=== PATIENT | male | born 1950 | race Caucasian/White ===

== ENCOUNTER 2016-09-09 15:43 | Inpatient (IN) | payer OTHER ==
--- NOTE | 2016-09-09 15:53 | EDPHY ---
H & P Time Seen by Provider: 09/09/16 15:44 HPI/ROS: CHIEF COMPLAINT: Abdominal pain vomiting HISTORY OF PRESENT ILLNESS: Patient had hot dog last Tuesday and started having vomiting and diarrhea after that. Since Tuesday he has had abdominal pain which is bilateral across his lower abdomen and worse with trying to eat or drink anything. He vomited 3 times today and no bowel movement since Tuesday and no good oral intake of food since Tuesday. Was seen on the and had a creatinine 3.2 decreasing to 1.4 on the . Abdominal pain is moderate to severe. Does not radiate except located on both lower quadrants. Not associated with urinary symptoms. Not better or worse with position. Worse with walking and eating. REVIEW OF SYSTEMS: Eye: no change in vision ENT: no sore throat Cardiac: no chest pain or syncope Pulmonary: no cough or SOB Abdomen: HPI Musculoskeletal: no back pain Skin: no rash Neuro: no headache Constitutional: no fever : no urinary symptoms A comprehensive 10 point review of systems is otherwise negative aside from elements mentioned in the history of present illness. PAST MEDICAL HISTORY: Knee scope, cataract surgery Social history: No tobacco General Appearance: Alert and conversant, cooperative. Eyes: No scleral icterus. ENT, Mouth: Dry mucous membranes Respiratory: Normal respiratory effort, breath sounds equal, lungs are clear to auscultation. Cardiovascular: Regular rate and rhythm. Gastrointestinal: Mildly distended but bowel sounds present bilateral lower quadrant tenderness without rebound or guarding. Neurological: Alert and oriented x3. Normally conversant. Face symmetric, normal movement and sensation in all extremities. Ambulatory. Skin: Warm and dry, no rashes. Musculoskeletal: No peripheral edema and no joint swelling. Psychiatric: Not agitated. Emergency Department course/MDM: Dilaudid 0.5 mg IV and Zofran 4 mg IV. Normal saline 2 L IV for nausea and vomiting. CT scanning discussed and consented. 1620: I-STAT creatinine 1.5, CT with IV contrast. 1715: Results discussed with patient and surgeon, IV Invanz 1 g, plan for admission. Smoking Status: Never smoked Constitutional: Initial Vital Signs Temperature (C) 36.7 C 09/09/16 15:48 Heart Rate 96 09/09/16 15:48 Respiratory Rate 16 09/09/16 15:48 Blood Pressure 122/90 H 09/09/16 15:48 O2 Sat (%) 94 09/09/16 15:48 O2 Delivery Mode Room Air Allergies/Adverse Reactions: acetaminophen [From Tylenol] Allergy (Verified 09/09/16 15:48) Home Medications: Medication Instructions Recorded Multivitamins [Multivitamin (*)] 1 each PO DAILY 09/09/16 Naproxen Sodium [Aleve 220 MG (*)] 220 mg PO TUTHFR 09/09/16 Medical Decision Making - Diagnostics EKG Interpretation: 12-lead EKG interpreted by me; official reading is in trace master. My interpretation is sinus rhythm rate 93 no ischemic changes. Imaging Results: Imaging Impressions Abdomen CT 09/09/16 16:25 Impression: 1. High-grade distal small bowel obstruction, with superimposed acute appendicitis and appendicoliths or lobulated partially calcified mass in the cecum or base of the appendix, and, therefore, superimposed neoplasm in this region cannot be excluded. 2. Small loculated fluid collection possibly within the posterior right side of the pelvis may represent early abscess. Findings and recommendations discussed with Emergency Department physician, Alvaro Dawson M.D., at 1720 hours, on September 09, 2016. Final report concurs with initial preliminary interpretation. CT abdomen and pelvis viewed independently and interpreted by myself at 5:13 p.m. shows small bowel obstruction. Discussed with Maninderi at 5:20 p.m. shows also possible appendicitis. Imaging: I viewed and interpreted images myself Differential Diagnosis: Differential diagnosis considered for abdominal pain including but not limited to appendicitis, cholecystitis, pancreatitis, bowel obstruction, diverticulitis. Consult/Admit Bed Type: [place] [id number] - Data Points Laboratory Results: Laboratory Results 09/09/16 16:10 09/09/16 16:10 09/09/16 09/09/16 09/09/16 16:11 16:10 16:10 WBC RBC Hgb POC Hgb 17.0 gm/dL gm/dL (14.5-17.3) Hct POC Hct 50 % % (42.8-50.6) MCV MCH MCHC RDW Plt Count MPV Neut % (Auto) Lymph % (Auto) [place] % (Auto) Eos % (Auto) Baso % (Auto) Nucleat RBC Rel Count Absolute Neuts (auto) Absolute Lymphs (auto) Absolute Monos (auto) Absolute Eos (auto) Absolute Basos (auto) Absolute Nucleated RBC Immature Gran % Seg Neutrophils % Band Neutrophils % Lymphocytes % Monocytes % Eosinophils % Metamyelocytes % Immature Gran # Absolute Seg Neuts Absolute Band Neuts Absolute Lymphocytes Absolute Monocytes Absolute Eosinophils Absolute Metamyelocyte RBC/WBC/PLT Morphology Platelet Estimate Smear Review By [facility] Lactic Acid 1.2 mmol/L mmol/L (0.7-2.1) POC Sodium 130 mEq/L L mEq/L (134-144) Sodium 128 mEq/L L mEq/L (134-144) POC Potassium 4.1 mEq/L mEq/L (3.3-5.0) Potassium 4.5 mEq/L mEq/L (3.5-5.2) POC Chloride 91 mEq/L L mEq/L (96-108) Chloride 89 mEq/L L mEq/L (97-110) Carbon Dioxide 26 mEq/l mEq/l (22-31) Anion Gap 13 mEq/L mEq/L (8-16) POC BUN 41 mg/dL H mg/dL (7-23) BUN 42 mg/dL H mg/dL (7-23) Creatinine 1.4 mg/dL H mg/dL (0.7-1.3) POC Creatinine 1.5 mg/dL mg/dL (0.8-1.5) Estimated GFR 51 Glucose 130 mg/dL H mg/dL (70-100) POC Glucose 132 mg/dL H mg/dL (70-100) Calcium 9.0 mg/dL mg/dL (8.5-10.4) Total Bilirubin 1.0 mg/dL mg/dL (0.1-1.4) Conjugated Bilirubin 0.6 mg/dL H mg/dL (0.0-0.5) Unconjugated Bilirubin 0.4 mg/dL mg/dL (0.0-1.1) AST 61 IU/L H IU/L (17-59) ALT 72 IU/L IU/L (21-72) Alkaline Phosphatase 141 IU/L H IU/L (38-126) Total Protein 6.9 g/dL g/dL (6.3-8.2) Albumin 3.8 g/dL g/dL (3.5-5.0) Lipase 72.0 IU/L IU/L (23-300) 09/09/16 16:10 WBC 4.48 10^3/uL D 10^3/uL (3.80-9.50) RBC 5.38 10^6/uL 10^6/uL (4.40-6.38) Hgb 16.3 g/dL g/dL (13.7-17.5) POC Hgb Hct 46.6 % % (40.0-51.0) POC Hct MCV 86.6 fL fL (81.5-99.8) MCH 30.3 pg pg (27.9-34.1) MCHC 35.0 g/dL g/dL (32.4-36.7) RDW 13.3 % % (11.5-15.2) Plt Count 331 10^3/uL D 10^3/uL (150-400) MPV 10.2 fL fL (8.7-11.7) Neut % (Auto) Not Reported Lymph % (Auto) Not Reported [place] % (Auto) Not Reported Eos % (Auto) Not Reported Baso % (Auto) Not Reported Nucleat RBC Rel Count 0.0 % % (0.0-0.2) Absolute Neuts (auto) Not Reported Absolute Lymphs (auto) Not Reported Absolute Monos (auto) Not Reported Absolute Eos (auto) Not Reported Absolute Basos (auto) Not Reported Absolute Nucleated RBC 0.00 10^3/uL 10^3/uL (0-0.01) Immature Gran % Not Reported Seg Neutrophils % 30 % % Band Neutrophils % 24 % % Lymphocytes % 15 % % Monocytes % 28 % % Eosinophils % 2 % % Metamyelocytes % 1 % % Immature Gran # Not Reported Absolute Seg Neuts 1.34 10^/uL L 10^/uL (1.70-6.50) Absolute Band Neuts 1.08 10^3/uL H 10^3/uL (0.00-0.70) Absolute Lymphocytes 0.67 10^3/uL L 10^3/uL (1.00-3.00) Absolute Monocytes 1.25 10^3/uL H 10^3/uL (0.30-0.80) Absolute Eosinophils 0.09 10^3/uL 10^3/uL (0.03-0.40) Absolute Metamyelocyte 0.04 10^3/mL H 10^3/mL (0.00-0.00) RBC/WBC/PLT Morphology NORMAL (NORMAL) Platelet Estimate ADEQUATE (ADEQ) Smear Review By Pending VBG Lactic Acid POC Sodium Sodium POC Potassium Potassium POC Chloride Chloride Carbon Dioxide Anion Gap POC BUN BUN Creatinine POC Creatinine Estimated GFR Glucose POC Glucose Calcium Total Bilirubin Conjugated Bilirubin Unconjugated Bilirubin AST ALT Alkaline Phosphatase Total Protein Albumin Lipase Medications Given: Discontinued Medications Hydromorphone HCl (Dilaudid) 0.5 mg IVP EDNOW ONE Stop: 09/09/16 16:06 Last Admin: 09/09/16 16:15 Dose: 0.5 mg Sodium Chloride (Ns) 1,000 mls @ 0 mls/hr IV ONCE ONE PRN Reason: Wide Open Stop: 09/09/16 16:06 Last Admin: 09/09/16 16:15 Dose: 1,000 mls Ertapenem 1 gm/ Sodium (Chloride) 100 mls @ 200 mls/hr IV EDNOW ONE PRN Reason: Protocol Stop: 09/09/16 17:50 Last Admin: 09/09/16 17:45 Dose: 100 mls Ondansetron HCl (Zofran) 4 mg IVP EDNOW ONE Stop: 09/09/16 16:06 Last Admin: 09/09/16 16:15 Dose: 4 mg Point of Care Test Results: 09/09/16 16:11 POC Sodium 130 L POC Potassium 4.1 POC Chloride 91 L POC BUN 41 H POC Creatinine 1.5 POC Glucose 132 H Departure - Departure Disposition: [facility] Inpatient Acute Clinical Impression: Hyponatremia, Dehydration Bowel obstruction Qualifiers: Intestinal obstruction type: unspecified Qualified Code(s): K56.60 - Unspecified intestinal obstruction Condition: Good
[2016-09-09] MEDS ORDERED: HYDROmorphONE/DILAUDID 1 MG/ML SYR IVP ONE (16:05)
[2016-09-09] MEDS ORDERED: NS 1,000 ML IV ONE (16:05)
[2016-09-09] MEDS ORDERED: ONDANSETRON 4 MG/2 ML VIAL IVP ONE (16:05)
--- NOTE | 2016-09-09 16:24 | CPEKG ---
Heart Rate: 93 RR Interval: 645 P-R Interval: 144 QRSD Interval: 90 QT Interval: 348 QTC Interval: 433 P [place]: 70 QRS [place]: 75 T Wave [place]: 51 EKG Severity - NORMAL ECG - EKG Impression: SINUS RHYTHM Electronically Signed By: Alvaro Dawson 09-Sep-2016 16:30:43
[2016-09-09 16:26] LABS: ADD DIFF? YES; ADD MORPH? NO; ATYPICAL LYMPHOCYTE FLAG 0 (0-99); FRAGMENT RBC FLAG 0 (0-99); HEMATOCRIT 46.6 % (40.0-51.0); HEMOGLOBIN 16.3 g/dL (13.7-17.5); LIPEMIA HEMOLYSIS FLAG 90 (0-99); MEAN CELL HEMOGLOBIN 30.3 pg (27.9-34.1); MEAN CELL VOLUME 86.6 fL (81.5-99.8); MEAN PLATELET VOLUME 10.2 fL (8.7-11.7); PLATELET CLUMPS FLAG 10 (0-99); PLATELET COUNT 331 10^3/uL (150-400); RED BLOOD CELL COUNT 5.38 10^6/uL (4.40-6.38); RED CELL DISTRIBUTION WIDTH 13.3 % (11.5-15.2)
[2016-09-09 16:28] LABS: ADD SCAN? NO; LEFT SHIFT FLG 100 (0-99)
[2016-09-09 16:42] LABS: ALANINE AMINOTRANSFERASE 72 IU/L (21-72); ALBUMIN 3.8 g/dL (3.5-5.0); ALKALINE PHOSPHATASE 141 IU/L (38-126); ANION GAP 13 mEq/L (8-16); ASPARTATE AMINOTRANSFERASE 61 IU/L (17-59); BILIRUBIN-CONJUGATED 0.6 mg/dL (0.0-0.5); BILIRUBIN-UNCONJUGATED 0.4 mg/dL (0.0-1.1); CARBON DIOXIDE 26 mEq/l (22-31); CHLORIDE 89 mEq/L (97-110); CREATININE 1.4 mg/dL (0.7-1.3); GLOMERULAR FILTRATION RATE 51; GLUCOSE 130 mg/dL (70-100); POTASSIUM 4.5 mEq/L (3.5-5.2); SODIUM 128 mEq/L (134-144); TOTAL PROTEIN 6.9 g/dL (6.3-8.2)
[2016-09-09] MEDS ORDERED: IOPAMIDOL (ISOVUE-300) 100 ML BTL IV ONE (16:50)
[2016-09-09 17:12] LABS: PLATELET ESTIMATE ADEQUATE (ADEQ)
[2016-09-09] MEDS ORDERED: ERTAPENEM 1 GM in NS 100 ML IV ONE (17:21)
[2016-09-09] MEDS ORDERED: BENZOCAINE UNIT DOSE SPRAY HURRICAINE MM ONE (18:36)
[2016-09-09] MEDS ORDERED: ONDANSETRON DISINTEGRATING 4 MG TAB PO PRN (21:07)
[2016-09-09] MEDS ORDERED: ONDANSETRON 4 MG/2 ML VIAL IVP PRN (21:07)
[2016-09-09] MEDS: NS 1,000 ML IV SCH (21:38)
--- NOTE | 2016-09-09 21:48 | GHP ---
[f rep st] HISTORY AND PHYSICAL DATE OF ADMISSION: 09/09/2016 CHIEF COMPLAINT: Abdominal pain. HISTORY OF PRESENT ILLNESS: This is an otherwise healthy 66-year-old male who [facility] with abdominal distention and pain. Per the patient's report, over the weekend, he ate what he felt was tainted food. Since that time, he had acute diarrheal illness associated with nausea, vomiting, was subsequently seen at Urgent Care where he was diagnosed with hyponatremia and acute kidney injury. He was subsequently hydrated and sent home. Since that time, he never really felt well. He complains of increasing abdominal distention and obstipation for the last 24 hours. In addition, he also endorses nausea with occasional vomiting. He denies having fevers or chills. He states he has never had any symptoms like this before. He presents to the emergency department today because of worsening abdominal distention, excruciatin g pain, and not passing anything from below. He denies having fevers or chills. He has never had p ain like this before. PAST MEDICAL HISTORY: None. PAST SURGICAL HISTORY: Multiple orthopedic procedures and a cataract procedure performed most recen tly. CURRENT MEDICATIONS: None. ALLERGIES: None. REVIEW OF SYSTEMS: A full 10-point review was performed and unless explicitly stated above, is othe rwise negative. PHYSICAL EXAM: VITAL SIGNS: Temp 36.8, blood pressure 135/75, heart rate 90, and he is 92% on room air. GENERAL: He is alert and oriented, in no acute distress. CV: He has got a regular rate and rhythm without any murmurs. LUNGS: Clear to auscultation bilaterally. ABDOMEN: Distended, minim ally tender without rebound tenderness or guarding. No masses appreciated. EXTREMITIES: Warm and well perfused. LABS: White count normal at 4. H and H normal at 17 and 50. Platelets 331. Chemistry unremarkabl e with the exception of an elevated creatinine of 1.4. IMAGING: Includes a CT scan, which shows moderately dilated small bowel all the way to the ileoceca l valve. There was a question of whether or not there is a mass in the cecum causing extrinsic comp ression of this. ASSESSMENT AND PLAN: A 66-year-old male with small-bowel obstruction, unclear etiology. I did rela y my findings with the patient that I am concerned that he has a mass in his cecum. He does endorse having his last colonoscopy approximately 15 years ago when he was 51 years old and, at that time, it was normal. He denies having any personal or family history of colon cancer. Denies having any blood per stools and denies having any recent weight loss. I did tell him that I am concerned that this mass does represent malignancy, as he has really no other reasons for having a bowel obstructio n, including no previous past surgical histories of the abdomen, and no hernias on imaging and/or ex am. I told him, as he is currently stable, and not an extremist, I will plan to place a nasogastric tube for proximal gastric decompression. We will continue to hydrate, recheck his kidney function in the morning. I did tell him that I am concerned about this mass and that it will more than likel y need operative exploration. He is hesitant, as he has "a lot of things planned," but he does seem to understand that definitive diagnosis will likely require tissue, and the most expeditious way wi ll more than likely be through operative exploration. /[id number]/MODL
[2016-09-09] MEDS: HYDROmorphONE/DILAUDID 1 MG/ML SYR IVP PRN (21:52)
[2016-09-10 05:17] LABS: ANION GAP 10 mEq/L (8-16); CALCIUM 8.2 mg/dL (8.5-10.4); CARBON DIOXIDE 27 mEq/l (22-31); CHLORIDE 98 mEq/L (97-110); CREATININE 1.2 mg/dL (0.7-1.3); GLOMERULAR FILTRATION RATE > 60; GLUCOSE 100 mg/dL (70-100); POTASSIUM 4.2 mEq/L (3.5-5.2); SODIUM 135 mEq/L (134-144)
[2016-09-10] MEDS: HYDROmorphONE/DILAUDID 1 MG/ML SYR IVP PRN ×3 (08:13→18:07)
[2016-09-10] MEDS: NS 1,000 ML IV SCH ×2 (12:52→20:51)
[2016-09-10] MEDS: CEPACOL LOZENGE PO PRN (14:24)
--- NOTE | 2016-09-10 14:41 | SOAPPROG ---
SOAP Progress Note Assessment/Plan: Assessment/Plan - 66yo M c SBO 2/2 colonic mass - decompressing nicely, pain has improved along with abd distention. NGT with persistently elevated output >2L - Had a long discussion with patient and today that I am still concerned about colonic mass despite improvement in Sx. - Given above, want to obtain tissue Dx, will plan for operative exploration tomorrow. Anticipate will need R colectomy. Discussed RBA. Scheduled for 0800 09/10/16 14:39 Subjective: Feels better, some flatus Objective: Vital Signs Temp Pulse Resp BP Pulse Ox 36.9 C 98 16 127/77 H 91 L 09/10/16 11:21 09/10/16 11:21 09/10/16 11:21 09/10/16 11:21 09/10/16 11:21 Laboratory Results 09/10/16 04:22 09/09/16 09/10/16 09/11/16 05:59 05:59 05:59 Intake Total 2332 Output Total 1300 1900 Balance 1032 -1900 ICD10 Worksheet Patient Problems: Problems Problem Status Onset Bowel obstruction Acute Dehydration Acute Hyponatremia Acute
[2016-09-11 04:09] LABS: HEMATOCRIT 38.5 % (40.0-51.0); HEMOGLOBIN 13.1 g/dL (13.7-17.5); MEAN CELL HEMOGLOBIN 30.3 pg (27.9-34.1); MEAN CELL VOLUME 89.1 fL (81.5-99.8); RED BLOOD CELL COUNT 4.32 10^6/uL (4.40-6.38); RED CELL DISTRIBUTION WIDTH 13.2 % (11.5-15.2)
[2016-09-11 04:15] LABS: ALANINE AMINOTRANSFERASE 43 IU/L (21-72); ALBUMIN 2.8 g/dL (3.5-5.0); ALKALINE PHOSPHATASE 82 IU/L (38-126); ANION GAP 9 mEq/L (8-16); ASPARTATE AMINOTRANSFERASE 26 IU/L (17-59); BILIRUBIN,TOTAL 0.7 mg/dL (0.1-1.4); CARBON DIOXIDE 27 mEq/l (22-31); CHLORIDE 101 mEq/L (97-110); CREATININE 0.9 mg/dL (0.7-1.3); GLOMERULAR FILTRATION RATE > 60; GLUCOSE 81 mg/dL (70-100); POTASSIUM 3.8 mEq/L (3.5-5.2); SODIUM 137 mEq/L (134-144); TOTAL PROTEIN 5.2 g/dL (6.3-8.2)
[2016-09-11] MEDS: NS 1,000 ML IV SCH ×2 (04:18→17:37)
[2016-09-11] MEDS ORDERED: PROPOFOL/EMULSION 500 MG/50 ML BOTTLE IV ONE (08:02)
[2016-09-11] MEDS ORDERED: fentaNYL 250 MCG/5 ML INJ ONE (08:02)
[2016-09-11] MEDS ORDERED: CEFAZOLIN 2 GM/DEXTROSE/100 ML BAG IV ONE (08:10)
[2016-09-11] MEDS ORDERED: MIDAZOLAM 2 MG/2 ML VIAL ONE (08:10)
[2016-09-11] MEDS ORDERED: ROCURONIUM 50 MG/5 ML VIAL ONE (08:22)
[2016-09-11] MEDS ORDERED: LIDOCAINE 2% 100 MG/5 ML SYR ONE (08:22)
[2016-09-11] MEDS ORDERED: BUPIVACAINE 0.5% 30 ML SDV ONE (08:42)
[2016-09-11] MEDS ORDERED: SUGAMMADEX SODIUM 200 MG/2 ML VIAL IVP ONE (10:08)
[2016-09-11] MEDS ORDERED: fentaNYL 100 MCG/2 ML INJ ONE (11:18)
[2016-09-11] MEDS: HYDROmorphONE/DILAUDID 1 MG/ML SYR IVP PRN ×4 (12:53→20:52)
--- NOTE | 2016-09-11 16:07 | GOP ---
[f rep st] OPERATIVE REPORT DATE OF OPERATION: 09/11/2016 SURGEON: Bulmaro Rosa MD STAINING MACHINE OPERATOR: Lillie Thomas MD. ANESTHESIA: General endotracheal. ANESTHESIOLOGIST: Dr. Arroyo. PREOPERATIVE DIAGNOSIS: Small bowel obstruction secondary to right lower quadrant mass. POSTOPERATIVE DIAGNOSIS: Small-bowel obstruction secondary to perforated appendicitis. PROCEDURE PERFORMED: Exploratory laparoscopy with partial cecectomy. FINDINGS: Upon entering the patient's abdomen, he did have purulent material in the right lower quadrant with what appeared to be stool. After dissecting off the omentum, I identified what appeared to be a perforation in the midbody of the appendix. Given these findings, I made a small right lower quadrant incision, performed a partial cecectomy, including the appendiceal base. Frozen section of this showed no evidence for any malignancy. SPECIMENS: Portion of cecum with appendix. ESTIMATED BLOOD LOSS: 10 cc. DESCRIPTION OF PROCEDURE: The patient was greeted in the preoperative suite. Once again, risks, benefits, and alternatives were discussed. Consent was signed. He was then brought back to the operative suite, placed on the OR table in a supine position. After all anesthesia machines, including SCDs, were on and functioning, a [employer] time-out was performed. General endotracheal anesthesia was then induced without incident. Antibiotics were given on-call to the operating room. The patient's abdomen was then widely prepped and draped in typical sterile fashion. I entered the abdomen via an infraumbilical incision using the Veress needle and achieved pneumoperitoneum to 15 mmHg CO2, which was well tolerated by the patient. I then inserted 2 additional 5 mm trocars, one in the left lower, one in the left upper quadrant, both under direct visualization. Using blunt dissection, I identified the cecal base by tracing the taeniae inferiorly. The omentum was significantly adhered to this section, and it was gently dissected off. After doing so, I identified a purulent cavity which was suction irrigated and cultures field service representative were taken and sent off. I also identified several small pieces of stool at this site as well and removed them from the abdominal cavity. After this was done, I identified the appendix which appeared to be indurated, consistent with appendicitis. After dissecting the appendix free from its surrounding retroperitoneal structures, I did identify a perforation in the midbody of the appendix. The appendix was then dissected off its surrounding structures. There was a second perforation identified at the base of the appendix, and it was a question of whether or not this was iatrogenic or not. At any rate, several loops of dilated small bowel were identified adjacent to the cecum and terminal ileum, and these were dissected off with gentle dissection done bluntly. At this point in time, given the perforation at the cecal base and the question of whether or not there was a mass in the cecum, I made a small right lower quadrant, approximately 3 cm longitudinally and carried it down to the subcutaneous tissue. I then entered the abdomen using a wound protector to protect the fascial edges. Once successfully in the abdomen, I delivered the cecum through the incision site. I identified no masses at the site, but it did appear to be indurated and inflamed. The 2 perforations in the appendix were identified. Given the fact that I wanted to rule out any malignancy at the cecal base, I elected to do a partial cecectomy including the appendiceal base. I did this with multiple fires of the [employer] 45 blue load stapler. After this was done, I passed the specimen off for an intraoperative pathologic analysis. Staple line appeared to be clean, dry and intact completely without any colotomies apparent. I did oversew the staple line with multiple interrupted 3-0 Vicryl stitches in a Lembert type fashion, noting excellent seromuscular reapproximation. It was then delivered back into the abdomen. Pneumoperitoneum was then reestablished. The camera was then put back in where the resection site was identified and examined and noted to be intact. I did mobilize some adhesions of distal small bowel adjacent to the cecum bluntly. Found no other significant pathology or concerning findings. I irrigated the abdomen with multiple liters of warm normal saline. I then instilled local anesthesia into all the port sites including the right lower quadrant site. Pneumoperitoneum was then evacuated. I turned my attention to the right lower quadrant where the fascia was reapproximated with a running 0 PDS suture, noting excellent fascial reapproximation. Prior to doing this, both mine and my certified surgical assistant's gloves were changed prior to closing. After the fascia was closed, I closed my infraumbilical port site with an interrupted [id number] stitch with 0 Vicryl noting excellent fascial reapproximation as well. The skin was then closed with running 4-0 Monocryl over which Steri- Strips and sterile dressings were placed. All counts were reported as correct x2. The patient was then extubated and taken to the postanesthesia unit in stable condition. DRAINS: None. /[id number]/MODL MTDD
[2016-09-11] MEDS: CEPACOL LOZENGE PO PRN (20:52)
[2016-09-12] MEDS: HYDROmorphONE/DILAUDID 1 MG/ML SYR IVP PRN (01:53)
[2016-09-12] MEDS ORDERED: OXYCODONE/APAP 5/325 TAB PO PRN (07:33)
[2016-09-12] MEDS: oxyCODONE IR 5 MG TAB PO PRN ×4 (08:38→21:47)
--- NOTE | 2016-09-12 09:08 | SOAPPROG ---
SOAP Progress Note Assessment/Plan: Assessment/Plan - 66yo M POD#1 s/p lap assisted cecectomy for perforated appendicitis - Doing great. Pain well controlled and tolerating clears. His abdomen is a little more distended this AM which I counseled him is likely presistent ileus from surgery etc. Asked to go slow with clears and if needs hydration will hook back up to the IV. His abdomen is overall soft and reassuring and his dressings are clean. Will start PO pain medications. Continue ambulation. 09/10/16 14:39 09/12/16 09:07 Subjective: Sitting in chair, wants to eat and go home Objective: Vital Signs Temp Pulse Resp BP Pulse Ox 37.0 C 94 16 113/70 90 L 09/12/16 07:54 09/12/16 07:54 09/12/16 07:54 09/12/16 07:54 09/12/16 07:54 Microbiology 09/11/16 08:55 Gram Stain - Final Abdomen - Aspirate Laboratory Results 09/11/16 03:45 09/11/16 03:45 09/11/16 09/12/16 09/13/16 05:59 05:59 05:59 Intake Total 3988 3825 298 Output Total 1950 2105 Balance -613 1720 298 ICD10 Worksheet Patient Problems: Problems Problem Status Onset Bowel obstruction Acute Dehydration Acute Hyponatremia Acute
[2016-09-13] MEDS: oxyCODONE IR 5 MG TAB PO PRN (03:39)
[2016-09-13] MEDS: NAPROXEN SODIUM 220 MG TAB PO PRN ×2 (13:56→20:55)
[2016-09-13] MEDS: AMOXICILLIN/CLAVULANATE POT 875/125 MG TAB PO SCH ×2 (13:56→20:53)
--- NOTE | 2016-09-13 15:36 | SOAPPROG ---
SOAP Progress Note Assessment/Plan: Assessment/Plan - 66yo M POD#2 s/p lap assisted cecectomy for perforated appendicitis - Continues to look good, pain still well controlled. Tolerating clears but has little to no bowel sounds. Will cont clears for now. Cx taken intra-op growing strep, will start PO Augmentin for 5 total days for definitive coverage. Anticipate he will open up soon and will advance diet when he does. 09/10/16 14:39 09/12/16 09:07 09/13/16 15:35 Subjective: Doing well, wants to eat and go home Objective: Vital Signs Temp Pulse Resp BP Pulse Ox 36.8 C 80 18 97/58 L 94 09/13/16 11:37 09/13/16 11:37 09/13/16 11:37 09/13/16 11:37 09/13/16 11:37 Microbiology 09/11/16 08:55 Gram Stain - Final Abdomen - Aspirate Laboratory Results 09/11/16 03:45 09/11/16 03:45 09/12/16 09/13/16 09/14/16 05:59 05:59 05:59 Intake Total 3825 2198 360 Output Total 2105 Balance 1720 2198 360 ICD10 Worksheet Patient Problems: Problems Problem Status Onset Bowel obstruction Acute Dehydration Acute Hyponatremia Acute
[2016-09-13 23:28] VITALS: BP 121/68; PULSE 84; RESP 18; TEMP 98.1; O2SAT 91
[2016-09-14] MEDS: AMOXICILLIN/CLAVULANATE POT 875/125 MG TAB PO SCH (12:12)
--- NOTE | 2016-09-14 14:24 | SOAPPROG ---
SOAP Progress Note Assessment/Plan: Assessment/Plan - 66yo M POD#3 s/p lap assisted cecectomy for perforated appendicitis - Having flatus, has some decent bowel sounds. Will ADAT, if tolerates will plan for home despite some residual abd distention. Will likely plan for home on PO abx and narcotics as needed 09/10/16 14:39 09/12/16 09:07 09/13/16 15:35 09/14/16 14:22 Subjective: Doing well, having bowel function. Wants to eat and go home Objective: Vital Signs Temp Pulse Resp BP Pulse Ox 36.7 C 84 18 121/68 H 91 L 09/13/16 23:27 09/13/16 23:27 09/13/16 23:27 09/13/16 23:27 09/13/16 23:27 Microbiology 09/11/16 08:55 Gram Stain - Final Abdomen - Aspirate Laboratory Results 09/11/16 03:45 09/11/16 03:45 09/13/16 09/14/16 09/15/16 05:59 05:59 05:59 Intake Total 2198 2066 Balance 2198 2066 ICD10 Worksheet Patient Problems: Problems Problem Status Onset Bowel obstruction Acute Dehydration Acute Hyponatremia Acute
--- NOTE | 2016-09-14 15:01 | GDS ---
[f rep st] DISCHARGE SUMMARY DISCHARGE DIAGNOSES: Small-bowel obstruction secondary to perforated appendicitis. HOSPITAL COURSE: The patient was admitted from the emergency department on the evening of the . It was unclear as to what was driving his bowel obstruction at that time as the CT scan was unclea r. He was initially managed conservatively. Given the fact that he did have a lot of inflammation at his cecum, there was a question of whether or not there was a mass there. Given this and his yuan lure to resolve with conservative measures, I took him to the operating room on the morning of the 06 24 where I underwent laparoscopic exploration, identified perforated appendicitis. I did make a sm all hand port incision to palpate the area and performed a cecectomy. Intraoperative frozen analysi s was negative for malignancy. He tolerated the procedure well, was then taken to the general medic al floor. He did have some abdominal distention which improved. He was passing flatus and tolerati ng a regular diet on the day of discharge with pain that was well controlled on oral medicines. DISCHARGE MEDICATIONS: Oxycodone and Augmentin. DISPOSITION: He was discharged home with strict return precautions if his abdominal distention shou ld recur or he had worsening pain. FOLLOWUP: He will follow up with me in 10-14 days for a routine postoperative visit. /[id number]/MODL
== END 2016-09-14 14:04 | disposition home or self-care (01) | DRG 331 ==
LOC: F3E 19:25
PROVIDERS: ADMIT Surgery; ATTEND Surgery
PROC: 0DTH4ZZ Resection of Cecum, Percutaneous Endoscopic Approach (ICD-10-PCS; principal; 2016-09-11 08:00)
DX: K35.2 Acute appendicitis with generalized peritonitis (principal)
CPT/HCPCS: 82947-QW; 96365; J0690; J1170; J1335; J2001; J2250; J2405; J2704; J3010; Q9967

== ENCOUNTER → 2017-05-02 | Outpatient (CLI) | payer OTHER | LOC: BMCIMAGING 07:57 | PROVIDERS: ATTEND Internal Medicine | DX: K40.90 Unilateral inguinal hernia, without obstruction or gangrene, not specified as recurrent (principal) ==

== ENCOUNTER 2017-05-12 08:12 | Day surgery (SDC) | payer OTHER ==
[2017-05-12] MEDS ORDERED: ceFAZolin 2 GM/SWFI 2 GM/20 ML SYR IVP ONE (08:45)
[2017-05-12] MEDS ORDERED: LIDOCAINE 1% 2 ML INJ ID PRN (08:53)
[2017-05-12] MEDS ORDERED: LR 1,000 ML IV ONE (08:53)
[2017-05-12] MEDS ORDERED: BUPIVACAINE/EPI 0.5% 30 ML SDV ONE (08:57)
--- NOTE | 2017-05-12 08:57 | PDHPUP ---
History & Physical Update H&P update statement: This history and physical update is based on an assessment of the patient which was completed after admission or registration (within 24 hours), but prior to the surgery/procedure. H&P update: H&P reviewed & patient examined, no change in patient's condition since H&P completed
[2017-05-12] MEDS ORDERED: MIDAZOLAM 2 MG/2 ML VIAL IVP ONE (09:01)
--- NOTE | 2017-05-12 09:01 | PDANEPAE ---
ANE History of Present Illness right inguinal hernia ANE Past Medical History - Cardiovascular History Hx Hypertension: No Hx Arrhythmias: No Hx Chest Pain: No Hx Coronary Artery / Peripheral Vascular Disease: No Hx CHF / Valvular Disease: No Hx Palpitations: No - Pulmonary History Hx COPD: No Hx Asthma/Reactive Airway Disease: No Hx Recent Upper Respiratory Infection: No Hx Oxygen in Use at Home: No Hx Sleep Apnea: No Sleep Apnea Screening Result - Last Documented: Negative - Neurologic History Hx Cerebrovascular Accident: No Hx Seizures: No Hx Dementia: No - Endocrine History Hx Diabetes: No - Renal History Hx Renal Disorders: No - Liver History Hx Hepatic Disorders: No - Neurological & Psychiatric Hx Hx Neurological and Psychiatric Disorders: No - Cancer History Hx Cancer: No - Congenital Disorder History Hx Congenital Disorders: No - GI History Hx Gastrointestinal Disorders: No - Chronic Pain History Chronic Pain: No - Surgical History Prior Surgeries: Appendectomy 08/2016. Cataract surgery 2015. ACL repair Right 1993. Vasectomy 1979 ANE Review of Systems Review of systems is: negative Review of Systems: - Exercise capacity METS (RN): 6 METS ANE Patient History - Allergies Allergies/Adverse Reactions: acetaminophen [From Tylenol] Allergy (Verified 05/11/17 11:34) Hives - Home Medications Home medications: home medication list seen and reviewed Home Medications: Multivitamins [Multivitamin (*)] 1 each PO DAILY 09/09/16 [Last Taken Unknown] Naproxen Sodium [Aleve 220 MG (*)] 220 mg PO TUTHFR 09/09/16 [Last Taken Unknown ] - NPO status NPO Since - Liquids (Date): 05/11/17 NPO Since - Liquids (Time): 19:00 NPO Since - Solids (Date): 05/11/17 NPO Since - Solids (Time): 21:30 - Anes Hx Anes Hx: no prior problems - Smoking Hx Smoking Status: Never smoked - Family Anes Hx Family Hx Anesthesia Complications: NA ANE Labs/Vital Signs - Vital Signs Blood Pressure: 133/86 Heart Rate: 96 Respiratory Rate: 16 O2 Sat (%): 96 Height: 180.34 cm Weight: 74.389 kg ANE Physical Exam - Airway Neck exam: FROM Mallampati Score: Class 1 Mouth exam: normal dental/mouth exam - Pulmonary Pulmonary: no respiratory distress - Cardiovascular Cardiovascular: regular rate and rhythym - ASA Status ASA Status: II ANE Anesthesia Plan Anesthesia Plan: general endotracheal anesthesia
[2017-05-12] MEDS ORDERED: fentaNYL 100 MCG/2 ML INJ ONE ×3 (09:04→11:24)
[2017-05-12] MEDS ORDERED: PROPOFOL 200 MG/20 ML VIAL ONE (09:04)
[2017-05-12] MEDS ORDERED: ROCURONIUM 50 MG/5 ML VIAL ONE ×2 (09:06→10:01)
[2017-05-12] MEDS ORDERED: LIDOCAINE 2% 5 ML SDV ONE (09:06)
[2017-05-12] MEDS ORDERED: DEXAMETHASONE 4 MG/ML VIAL ONE (09:07)
[2017-05-12] MEDS ORDERED: SUGAMMADEX SODIUM 200 MG/2 ML VIAL IVP ONE (09:07)
[2017-05-12] MEDS ORDERED: ONDANSETRON 4 MG/2 ML VIAL ONE (09:07)
[2017-05-12] MEDS ORDERED: KETOROLAC 30 MG/1 ML SDV ONE (09:07)
[2017-05-12] MEDS ORDERED: PHENYLEPHRINE HCL 100 MCG/ML SYR ONE (09:38)
[2017-05-12] MEDS ORDERED: PROMETHAZINE HCL 25 MG/ML INJ IVP PRN (10:14)
[2017-05-12] MEDS ORDERED: fentaNYL 100 MCG/2 ML INJ IVP PRN (10:14)
[2017-05-12] MEDS ORDERED: NS 500 ML IV PRN (10:14)
[2017-05-12] MEDS ORDERED: ONDANSETRON 4 MG/2 ML VIAL IVP PRN (10:14)
[2017-05-12] MEDS ORDERED: NALOXONE HCL 0.4 MG/ML INJ IVP PRN (10:14)
[2017-05-12] MEDS ORDERED: ALBUTEROL 3 ML DEYVIAL IH PRN (10:14)
[2017-05-12] MEDS ORDERED: HYDROmorphONE/DILAUDID 1 MG/ML INJ IVP PRN (10:14)
--- NOTE | 2017-05-12 11:16 | POSTANESTH ---
Post Anesthetic Evaluation Cardiovascular Status: Normal, Stable Respiratory Status: Normal, Stable Level of Consciousness/Mental Status: Can Participate in Eval Pain Control: Adequate, Prn Tx Ordered Nausea/Vomiting Control: Adequate, Prn Tx Ordered Complications Possibly Related to Anesthesia: None Noted
--- NOTE | 2017-05-12 12:07 | POSTOPPROG ---
Post Op Note Date of Operation: 05/12/17 Surgeon: Bulmaro Rosa Skein Spooler: Arabella Hadley CFA Anesthesiologist: Milla Anesthesia: GET(General Endotracheal) Pre-op Diagnosis: symptomatic RIH Post-op Diagnosis: large indirect RIH Indication: pain Procedure: robotic assisted laparoscopic right inguinal hernia repair with mesh Findings: large indirect, fat containing hernia Inf/Abcess present in the surg proc area at time of surgery?: No EBL: Minimal
[2017-05-12 12:11] VITALS: PULSE 93; RESP 16; TEMP 97.9
[2017-05-12 13:36] VITALS: BP 150/94; O2SAT 95
--- NOTE | 2017-05-12 14:26 | GOP ---
[f rep st] OPERATIVE REPORT DATE OF OPERATION: 05/12/2017 SURGEON: Bulmaro Rosa MD DOCTOR OF PODIATRIC MEDICINE: Seda Hadley CFA. ANESTHESIA: General endotracheal provided by Dr. Loyola. PREOPERATIVE DIAGNOSIS: Symptomatic right inguinal hernia. POSTOPERATIVE DIAGNOSIS: Symptomatic right inguinal hernia. PROCEDURE PERFORMED: Robotic assisted laparoscopic right inguinal hernia repair with mesh and abdominal adhesiolysis. FINDINGS: Significant amount of omental adhesions to both the midline and the right lower quadrant which were taken down sharply. Large indirect defect containing omental fat successfully reduced. Hernia repaired with Bard 3D Light large-size mesh. SPECIMENS: None. ESTIMATED BLOOD LOSS: 10 cc. DESCRIPTION OF PROCEDURE: The patient was greeted in the preoperative suite and once again risks, benefits, and alternatives were discussed. Consent was signed. He was then brought back to the operative suite, placed on the OR table in a supine position. After all anesthesia machines, including SCDs, were on and functioning, [employer] time-out was performed. Antibiotics were given on-call to the operating room. After successful induction of general anesthesia, the patient's abdomen was prepped and draped in typical sterile fashion. I entered the abdomen via a supraumbilical cutdown through which the Veress needle was passed. I achieved pneumoperitoneum to 15 mmHg CO2, which was well tolerated by the patient. Through this, I inserted a 5 mm Visiport. Once successfully in the abdomen, I inserted 2 additional 8 mm trocars, one in the right upper, one in the left upper quadrant, both under direct visualization. I then upsized my supraumbilical port to an 8 as well. The patient was then placed in gentle Trendelenburg position and the robot was successfully docked. After docking the patient had a significant amount of midline and right lower quadrant adhesions from his previous surgeries. These were taken down sharply. After adhesiolysis, I turned my attention toward the right lower quadrant. Just above the ASIS, I made a peritoneal flap and carried this medially to just above the pubic tubercle. I carried my dissection down and created my flap. The patient had a very large indirect sac containing omental fat which was successfully and completely reduced. After reduction, I did actually enter the peritoneal lining at the area of the sac and closed it with 2 interrupted Vicryl stitches. The mesh was then brought in and tacked to the pubic tubercle using 2 interrupted Vicryl stitches and then 1 on either side of the inferior epigastric vessels. The peritoneal flap was then closed with a running 2-0 V-Loc suture. Pneumoperitoneum was then evacuated. My ports were removed. I closed my incision sites with running 4-0 Monocryl over which Dermabond was placed. The patient was then extubated in the operative suite and taken to the PACU in satisfactory condition. DRAINS: None. COUNTS: All counts were reported as correct x2. /[id number]/MODL MTDD
== END 2017-05-12 13:35 | disposition home or self-care (01) ==
LOC: FSGY 08:12
PROVIDERS: ATTEND Surgery
PROC: 0YU54JZ Supplement Right Inguinal Region with Synthetic Substitute, Percutaneous Endoscopic Approach (ICD-10-PCS; principal; 2017-05-12 09:45)
DX: K40.90 Unilateral inguinal hernia, without obstruction or gangrene, not specified as recurrent (principal); M19.012 Primary osteoarthritis, left shoulder
CPT/HCPCS: C1781; J0690; J1100; J1885; J2250; J2370; J2405; J2704; J3010